=== PATIENT | female | born 1980 | race Two or more races ===

== ENCOUNTER 2019-01-25 21:34 | Emergency (ER) | payer OTHER ==
[~2019-01-25] VITALS: Ht 162.6 cm; Wt 86.2 kg
[2019-01-26] MEDS ORDERED: MORPHINE SULFATE 10 MG/ML INJ 1ML SDV IM ONE (03:15)
[2019-01-26] MEDS ORDERED: ONDANSETRON HCL 4 MG/2 ML VIAL IM ONE (03:15)
[2019-01-26 03:27] VITALS: BP 132/84
== END 2019-01-26 04:00 | disposition home or self-care (01) ==
LOC: ER 21:37 → EEVIPCON 21:37 → ER 01-26 04:00
DX: S93.492A Sprain of other ligament of left ankle, initial encounter (principal); W01.0XXA Fall on same level from slipping, tripping and stumbling without subsequent striking against object, initial encounter; Y93.89 Activity, other specified; Y99.8 Other external cause status; Y92.89 Other specified places as the place of occurrence of the external cause
CPT/HCPCS: 73610; 73630; 96372; 99283; J2405